=== PATIENT | male | born 1980 ===

== ENCOUNTER 2018-11-29 17:25 | Emergency (ER) | payer SELFPAY ==
[2018-11-29 18:10] VITALS: BP 147/87
--- NOTE | 2018-11-29 18:14 | Event Note ---
ED Screening Note ED Screening Note: Pt presents to the ED with c/o bilateral ear pain that began yesterday states that he went diving yesterday states that he had to come up slightly fast and felt his ears pop no fever no ear drainage no PMHx no allergies to meds
--- NOTE | 2018-11-29 18:16 | Emergency Department Report ---
Chief Complaint: Earache Stated Complaint: BILATERAL EAR PAIN Time Seen by Provider: 11/29/18 18:08 - HPI History of Present Illness: Pt presents to the ED with c/o bilateral ear pain that began yesterday states feels like a pressure states that he went [place] yesterday in [place] states that he had to come up slightly fast and felt his ears pop no fever no ear drainage hearing feels slightly muffled but can still hear without difficulty no BAPTISTE, no vision changes, no N/V, no other symptoms no PMHx no allergies to meds small amount of cerumen in bilateral ears, no impaction, canals are normal, TMs are normal, no TM perforation no signs of infection no serous otitis media vitals are normal pt states that he took his wifes tramadol and that relieved his ear pain, advised pt that we cannot write narcotics for this complaint, discussed with pt the importance of following up with an ENT doctor, pt left prior to receiving his paperwork or referrals advised pt may take sudafed, may take tylenol or ibuprofen over the counter, may use over the counter ear drops for ear pain, follow up with an ENT doctor in the next 3-5 days for further examination and to have hearing test performed, return to the emergency room for any new or worsening symptoms - Exam Vital Signs: Vital Signs 11/29/18 18:08 Temperature 98.3 F Pulse Rate 85 Respiratory 16 Rate Blood Pressure 147/87 O2 Sat by Pulse 97 Oximetry MSE screening note: Focused history performed. ED Disposition for MSE Clinical Impression: Ear pain Qualifiers: Laterality: bilateral Qualified Code(s): H92.03 - Otalgia, bilateral Disposition: TO HOME OR SELFCARE Is pt being admited?: No Does the pt Need Aspirin: No Condition: Stable Instructions: Earache (ED) Additional Instructions: advised pt may take sudafed, may take tylenol or ibuprofen over the counter, may use over the counter ear drops for ear pain, follow up with an ENT doctor in the next 3-5 days for further examination and to have hearing test performed, it is very important you follow up with the ear nose and throat doctor. return to the emergency room for any new or worsening symptoms Referrals: LILLIAN GARCIA MD [Staff Physician] - 3-5 Days LALITHA PAZ MD [Staff Physician] - 3-5 Days Time of Disposition: 18:19 Print Language: YORUBA
== END 2018-11-29 18:51 | disposition home or self-care (01) ==
LOC: ED 17:25
DX: H92.03 Otalgia, bilateral (principal)
CPT/HCPCS: 99281